=== PATIENT | female | born 1995 | race American Indian/Alaskan Native ===

== ENCOUNTER 2019-05-23 19:56 | Inpatient (IN) | payer MEDICAID, OTHER ==
[2019-05-23] MEDS ORDERED: LACTATED RINGERS 1,000 ML IV SCH (22:00)
[2019-05-23] MEDS ORDERED: REGLAN ONE (23:33)
[2019-05-23] MEDS ORDERED: BICITRA ONE (23:33)
[2019-05-23] MEDS ORDERED: PITOCin/NS 20 UNIT/1000ML DRIP 20,000 MILLIUNITS/1,000 ML BAG IV ONE (23:33)
[2019-05-23] MEDS ORDERED: PEPCID IV ONE (23:33)
[2019-05-23] MEDS ORDERED: DEXMEDETOMIDINE IV ONE (23:44)
--- NOTE | 2019-05-23 23:49 | Anesthesia Consultation ---
Anesthesia Consult and Med Hx Date of service: 05/23/19 - Airway Anesthetic Teeth Evaluation: Good ROM Head & Neck: Adequate Mental/Hyoid Distance: Adequate Mallampati Class: Class II Intubation Access Assessment: Good - Pulmonary Exam CTA: Yes - Cardiac Exam Cardiac Exam: RRR - Pre-Operative Health Status ASA Pre-Surgery Classification: ASA2, Emergency Proposed Anesthetic Plan: Spinal - Pulmonary Hx Asthma: No COPD: No Hx Pneumonia: No - Cardiovascular System Hx Hypertension: No - Central Nervous System Hx Seizures: No Hx Psychiatric Problems: No - Endocrine Hx Renal Disease: No Hx End Stage Renal Disease: No Hx Liver Disease: No Hx Hypothyroidism: No Hx Hyperthyroidism: No - Hematic Hx Anemia: No Hx Sickle Cell Disease: No - Other Systems Hx Alcohol Use: Yes
--- NOTE | 2019-05-23 23:49 | Anesthesia Day of Surgery ---
Anesthesia Day of Surgery - Day of Surgery Patient Examined: Yes Patient H&P Reviewed: Yes Patient is NPO: Yes
[2019-05-24] MEDS ORDERED: NARCAN 0.4 MG/1 ML IV PRN ×2 (00:15→02:04)
[2019-05-24] MEDS ORDERED: DILAUDID IV PRN ×2 (00:15)
[2019-05-24] MEDS ORDERED: PHENERGAN PO PRN (00:15)
[2019-05-24] MEDS ORDERED: ZOFRAN IV PRN (00:15)
[2019-05-24] MEDS ORDERED: PHENERGAN PR PRN (00:15)
[2019-05-24 00:45] LABS: Hematocrit 30.7 % (30.3-42.9); Hemoglobin 9.8 gm/dl (10.1-14.3); Mean Corpuscular Volume 71 fl (79-97); Red Blood Count 4.31 M/mm3 (3.65-5.03)
[2019-05-24 00:46] LABS: Mean Corpuscular HGB Conc 32 % (30-34); Platelet Count 221 K/mm3 (140-440); Red Cell Distribution Width 23.3 % (13.2-15.2)
[2019-05-24] MEDS ORDERED: SODIUM CHLORIDE FLUSH SYRINGE 10 ML IV PRN ×2 (01:00→03:00)
--- NOTE | 2019-05-24 01:14 | History and Physical Report ---
History of Present Illness Date of examination: 05/24/19 Date of admission: 05/24/19 01:00 Chief complaint: Labor History of present illness: Pt is a 23yo BF EDC 06/10/19; EGA 37 4/7 weeks presents to L&D complaining of RUC's q 3-4 mins which persisted despite IV hydration. She is currently Breech confirmed by u/s, and therefore will be delivered by C Section. She received care at [facility] since 11 weeks and course has been unremarkable. records are now available, but GBS was unknown. Past History Past Medical History: no pertinent history Past Surgical History: no surgical history Social history: no significant social history, single - Obstetrical History Expected Date of Delivery: 06/10/19 Actual Gestation: 37 Week(s) 5 Day(s) : 2 Medications and Allergies Allergies Allergy/AdvReac Type Severity Reaction Status Date / Time egg Allergy Intermediate Swelling Verified 01/11/15 17:26 Home Medications Medication Instructions Recorded Confirmed Last Taken Type Ondansetron [Zofran] 4 mg PO Q6HR PRN 01/11/15 05/24/19 Unknown History Active Meds: Active Medications Hydromorphone HCl (Dilaudid) 0.5 mg IV Q5M PRN PRN Reason: Breakthrough Pain Stop: 05/24/19 06:59 Hydromorphone HCl (Dilaudid) 0.5 mg IV Q4H PRN PRN Reason: breakthrough pain > 7/10 Lactated Ringer's (Lactated Ringers) 1,000 mls @ 150 mls/hr IV DIRECT TERESO Naloxone HCl (Narcan 0.4 Mg/1 Ml) 0.2 mg IV Q2MIN PRN PRN Reason: Res Rate </= 8 or 02 SAT < 92% Ondansetron HCl (Zofran) 4 mg IV Q8H PRN PRN Reason: Nausea And Vomiting Promethazine HCl (Phenergan) 25 mg PO Q6H PRN PRN Reason: Nausea And Vomiting Promethazine HCl (Phenergan) 25 mg AR Q6H PRN PRN Reason: Nausea And Vomiting Sodium Chloride (Sodium Chloride Flush Syringe 10 Ml) 10 ml IV PRN PRN PRN Reason: LINE FLUSH Review of Systems All systems: negative - Vital Signs Vital signs: Vital Signs Pulse BP 122 H 103/69 05/23/19 21:04 05/23/19 21:04 Temp Pulse Resp BP Pulse Ox 99.8 F H 113 H 20 114/77 05/23/19 21:05 05/23/19 22:53 05/23/19 21:05 05/23/19 22:53 - Physical Exam Breasts: Positive: deferred Cardiovascular: Regular rate Lungs: Positive: Clear to auscultation Abdomen: Positive: normal appearance Genitourinary (Female): Positive: normal external genitalia Uterus: Positive: enlarged Extremities: Positive: normal - Obstetrical FHR: category 1 Uterine Contraction Monitor Mode: External Results Result Diagrams: 05/24/19 14:53 Abnormal lab results 05/23/19 Range/Units 23:00 WBC 12.0 H (4.5-11.0) K/mm3 Hgb 9.8 L (10.1-14.3) gm/dl MCV 71 L (79-97) fl MCH 23 L (28-32) pg RDW 23.3 H (13.2-15.2) % All other labs normal. Ultrasound: report reviewed (Breech presentation) Assessment and Plan - Patient Problems (1) 37 weeks gestation of Onset Date: 05/24/19 Current Visit: Yes Status: Resolved Plan to address problem: A: IUP @ 37 4/7 weeks in labor Breech presentation P: Admit to L&D for C Section delivery (2) Breech presentation Onset Date: 05/24/19 Current Visit: Yes Status: Resolved Qualifiers: Fetus number: single or unspecified fetus Qualified Code(s): O32.1XX0 - Maternal care for breech presentation, not applicable or unspecified
[2019-05-24] MEDS ORDERED: ZOFRAN ONE (01:16)
[2019-05-24] MEDS ORDERED: DIPRIVAN 10 MG/ML IV ONE (01:31)
[2019-05-24] MEDS ORDERED: TORADOL ONE (01:33)
--- NOTE | 2019-05-24 01:56 | Operative Report ---
Operative Report Operative Report: Date of procedure: 05/24/2019 Pre-operative diagnosis: 1. Intrauterine at 30 4/7 weeks in labor 2 . Breech presentation Post-operative diagnosis: Same Procedure name(s): Primary low transverse section Surgeon: Pipo Candelaria MD Glass Pulverizer Equipment Operator: None Anesthesia: Spinal anesthesia by Van Zambrano CRNA EBL: 800 mL's Findings: A 3549 g male Apgars 8 at 1 minute 9 at 5 minutes. Charlie breech presentation. Normal uterus. Normal tubes and ovaries bilaterally. Procedure: After the patient was prepped and draped in usual sterile fashion, and after satisfactory level of epidural anesthesia was obtained, the skin knife was used to make a transverse skin incision. The incision was excised down to layer of the fascia, which was nicked in the midline and extended laterally using the Bovie cautery. The rectus muscles were dissected off the rectus fascia both superiorly and inferiorly. The rectus bellies in the midline, and the peritoneum was entered under direct visualization. The peritoneal incision was extended superiorly and inferiorly. A bladder flap was created and the bladder blade was then placed. The uterus was scored in a curvilinear linear fashion, entered in the midline revealing clear amniotic fluid. The 's Charlie breech was delivered onto the surgical field, the rest of the infant's body was delivered, cord was doubly clamped and cut and the was handed to the waiting respiratory team. Cord blood was then obtained. The placenta was manually removed from the uterus, and the uterus removed from its normal anatomical position. After gentle uterine lavage, the incision was inspected and found to be without extensions. It was then closed in 2 layers using 0 Vicryl suture in a running interlocking fashion, the second layer imbricating the first. After good hemostasis was achieved, copious amounts or irrigation was performed, and the gutters were suctioned free of blood and blood clots. The uterus was then returned to its normal anatomical position, and after excellent hemostasis assured, the peritoneum was re- approximated using 3-0 Vicryl suture in a running interlocking fashion, and then the rectus muscles were re-approximated using 3-0 Vicryl suture in a [id number] configuration. The fascia was then re-approximated using 0 Vicryl suture in running interlocking fashion. The subcutaneous layer was made hemostatic using Bovie cautery, and the skin edges re-approximated using 4-0 Vicryl suture in a sub-cuticular fashion. Patient tolerated the procedure well was transported to recovery in stable condition.
[2019-05-24] MEDS ORDERED: WATER FOR IRRIG STERILE IR ONE (01:58)
[2019-05-24] MEDS ORDERED: NACL 0.9% IR ONE (01:58)
[2019-05-24] MEDS ORDERED: TORADOL IV PRN (02:04)
[2019-05-24] MEDS ORDERED: MILK OF MAGNESIA PO PRN (02:04)
[2019-05-24] MEDS ORDERED: NORCO 5/325 PO PRN (02:04)
[2019-05-24] MEDS ORDERED: TYLENOL PO PRN (02:04)
[2019-05-24] MEDS ORDERED: LANSINOH TP PRN (02:04)
[2019-05-24] MEDS ORDERED: SENOKOT PO PRN (02:04)
[2019-05-24] MEDS ORDERED: TUCKS PAD TP PRN (02:04)
[2019-05-24] MEDS ORDERED: MYLICON PO PRN (02:04)
[2019-05-24] MEDS ORDERED: PITOCin/NS 20 UNIT/1000ML DRIP 20 UNITS/1,000 ML BAG IV SCH (03:00)
[2019-05-24] MEDS ORDERED: D5LR 1,000 ML IV SCH (03:00)
--- NOTE | 2019-05-24 09:21 | Ultrasound Report ---
ULTRASOUND OB LIMITED HISTORY: well being, evaluate position. FINDINGS: Transabdominal imaging was performed. A single intrauterine is identified in sunny ch presentation. heart rate measures 138 bpm. IMPRESSION: Breech presentation. Signer Name: Pipo Lopez Jr, MD Signed: 05/24/2019 9:17 AM Workstation Name: [id number]
[2019-05-24] MEDS: ANCEF/NS 1 GM/50 ML 1 GM/50 ML BAG IV SCH ×2 (10:10→18:03)
[2019-05-24] MEDS: FEOSOL PO SCH (10:11)
[2019-05-24] MEDS: IBUPROFEN PO PRN (10:11)
[2019-05-24] MEDS: PRENATAL VITAMIN PO SCH (10:12)
[2019-05-24 15:21] LABS: Hematocrit 26.9 % (30.3-42.9); Hemoglobin 8.4 gm/dl (10.1-14.3)
--- NOTE | 2019-05-24 17:52 | Post Anesthesia Evaluation ---
- Post Anesthesia Evaluation Patient Participated: Yes Airway Patent: Yes Stable Respiratory Function: Yes Nausea/Vomiting: No Temp > 96.8F: Yes Pain Manageable: Yes Adequeate Hydration: Yes Anesthesia Complications: No Block Receding Appropriately: Yes Patient on Ventilator: No
[2019-05-24] MEDS: PERCOCET 5/325 PO PRN (22:05)
[2019-05-25] MEDS ORDERED: M-M-R II VACCINE SUB-Q ONE (02:05)
[2019-05-25] MEDS: PERCOCET 5/325 PO PRN ×4 (03:36→23:57)
[2019-05-25] MEDS ORDERED: BOOSTRIX IM ONE (06:00)
--- NOTE | 2019-05-25 09:08 | Progress Note ---
Assessment and Plan - Patient Problems (1) 37 weeks gestation of Onset Date: 05/24/19 Current Visit: Yes Status: Resolved (2) Breech presentation Onset Date: 05/24/19 Current Visit: Yes Status: Resolved Qualifiers: Fetus number: single or unspecified fetus Qualified Code(s): O32.1XX0 - Ma ternal care for breech presentation, not applicable or unspecified (3) Status post Onset Date: 05/25/19 Current Visit: Yes Status: Resolved Plan to address problem: A: S/P C Section - POD #1 Doing well Asymptomatic anemia - stable P: Continue RPOC Anticipate discharge in 24-48hrs Subjective - Subjective Date of service: 05/25/19 Principal diagnosis: s/p C Section - POD #1 Interval history: Pt is feeling well without complaints. Bleeding improved. Patient reports: appetite normal, voiding normally, pain well controlled, flatus, ambulating normally, no dizzy ambulation, no nauseated [place]: doing well, bottle feeding Objective - Vital Signs Latest vital signs: Vital Signs Temp Pulse Resp BP BP Pulse Ox 05/25/19 03:36 20 05/25/19 00:55 97.3 F L 72 20 104/64 98 05/24/19 22:05 18 05/24/19 20:50 98.2 F 78 20 98/60 100 05/24/19 16:05 97.9 F 51 L 20 102/67 05/24/19 12:45 98.7 F 81 18 100/69 Intake and Output 05/24/19 05/25/19 05/25/19 22:59 06:59 14:59 Intake Total 360 600 Output Total 600 Balance -240 600 Intake: Oral 360 240 Intake, Free Water 360 Output: Urine 600 Void 600 Other: Total, Intake Amount 360 240 Total, Output Amount 600 # Voids Void 1 1 - Exam Breasts: Present: deferred Abdomen: Present: normal appearance, soft Uterus: Present: normal, firm, fundal height below umbilicus Extremities: Present: normal Incision: Present: normal, dry, intact, dressed - Labs Labs: Abnormal lab results 05/24/19 Range/Units 14:53 Hgb 8.4 L (10.1-14.3) gm/dl Hct 26.9 L (30.3-42.9) % Laboratory Tests 05/23/19 05/23/19 05/24/19 23:00 23:00 14:53 WBC 12.0 H RBC 4.31 Hgb 9.8 L 8.4 L Hct 30.7 26.9 L MCV 71 L MCH 23 L MCHC 32 RDW 23.3 H Plt Count 221 Blood Type A POSITIVE Antibody Screen Positive Prewarmed Antibody Srcn Negative Antibody Identification Anti-M
[2019-05-25] MEDS: FEOSOL PO SCH (10:44)
[2019-05-25] MEDS: PRENATAL VITAMIN PO SCH (10:45)
[2019-05-25] MEDS: IBUPROFEN PO PRN ×2 (10:45→17:27)
[2019-05-26] MEDS: PERCOCET 5/325 PO PRN (05:33)
--- NOTE | 2019-05-26 08:10 | Progress Note ---
Assessment and Plan - Patient Problems (1) 37 weeks gestation of Onset Date: 05/24/19 Current Visit: Yes Status: Resolved (2) Breech presentation Onset Date: 05/24/19 Current Visit: Yes Status: Resolved Qualifiers: Fetus number: single or unspecified fetus Qualified Code(s): O32.1XX0 - Ma ternal care for breech presentation, not applicable or unspecified (3) Status post Onset Date: 05/25/19 Current Visit: Yes Status: Resolved Plan to address problem: A: S/P C Section - POD #2 Doing well Asymptomatic anemia - stable P: May go home today Subjective - Subjective Date of service: 05/26/19 Principal diagnosis: s/p C Section - POD #2 Interval history: Pt is feeling well without complaints. She is tolerating a reg diet without nausea or vomiting, ambulating and voiding without difficulty. Patient reports: appetite normal, voiding normally, pain well controlled, flatus, ambulating normally, no dizzy ambulation, no nauseated [place]: doing well, bottle feeding Objective - Vital Signs Latest vital signs: Vital Signs Temp Pulse Resp BP BP Pulse Ox 05/26/19 05:33 18 05/25/19 23:59 97.5 F L 69 16 99/65 99 05/25/19 23:57 20 05/25/19 16:05 97.8 F 20 113/68 Intake and Output 05/25/19 05/26/19 05/26/19 22:59 06:59 14:59 Intake Total 480 480 Balance 480 480 Intake: Oral 480 Intake, Free Water 480 Other: Total, Intake Amount 120 # Voids Void 2 2 - Exam Abdomen: Present: normal appearance, soft Uterus: Present: normal, firm, fundal height below umbilicus Extremities: Present: normal Incision: Present: normal, dry, intact
--- NOTE | 2019-05-26 08:42 | Discharge Summary ---
Providers - Providers Date of Admission: 05/24/19 01:00 Date of discharge: 05/26/19 Attending physician: MICHAEL KESSLER Primary care physician: MICHAEL KESSLER Hospitalization Reason for admission: active labor, labor, IUP at term, other (Breech presentation) Delivery: Procedure: section, primary low transverse Episiotomy: none Laceration: none Incision: normal, dry, intact Other procedures: none complications: none Discharge diagnosis: IUP at term delivered [place] baby: male Hospital course: Pt is a 23yo BF EDC 06/10/19; EGA 37 4/7 weeks who presented to L&D complaining of RUC's q 3-4 mins which persisted despite IV hydration. She was Breech confirmed by u/s, and therefore delivered by an uncomplicated C Section. Postoperative course was unremarkable and by POD #2 she was tolerating a reg diet without nausea or vomiting, ambulating and voiding without difficulty. She was therefore discharged to home on POD #2 in stable condition. Condition at discharge: Good Disposition: DC-01 TO HOME OR SELFCARE - Discharge Diagnoses (1) 37 weeks gestation of Status: Resolved (2) Breech presentation Status: Resolved Qualifiers: Fetus number: single or unspecified fetus Qualified Code(s): O32.1XX0 - Maternal care for breech presentation, not applicable or unspecified (3) Status post Status: Resolved Plan - Discharge Medications Prescriptions: Ferrous Sulfate [Feosol 325 MG tab] 325 mg PO BID #60 tablet Ibuprofen [Motrin 800 MG tab] 800 mg PO Q6H PRN #30 tablet PRN Reason: Pain, Mild (1-3) oxyCODONE /ACETAMINOPHEN [Percocet 5/325 mg] 1 tab PO Q6H PRN #30 tablet PRN Reason: Pain, Moderate (4-6) Vit-Fe Fumar-FA [ Vitamin] 1 each PO QDAY #30 tablet - Provider Discharge Summary Activity: routine, no sex for 6 weeks, no heavy lifting 4 weeks, no strenuous exercise Diet: routine Instructions: routine Additional instructions: [] Smoking cessation referral if applicable(refer to patient education folder for contact #) [] Refer to [facility] Booklet Call your doctor immediately for: * Fever > 100.5 * Heavy vaginal bleeding ( >1 pad per hour) * Severe persistent headache * Shortness of breath * Reddened, hot, painful area to leg or breast * Drainage or odor from incision. * Keep incision clean and dry at all times and follow doctor's instructions regarding bathing/showering - Follow up plan Follow up: MICHAEL KESSLER MD [Primary Care Provider] - 14 Days MIKE WILLOUGHBY CNM [Advanced Practice Nurse] - 14 Days Forms: [facility] Discharge Summary, Discharge Signature Page
[2019-05-26] MEDS: PRENATAL VITAMIN PO SCH (10:23)
[2019-05-26] MEDS: IBUPROFEN PO PRN (10:23)
[2019-05-26] MEDS: FEOSOL PO SCH (10:23)
[2019-05-26 14:59] VITALS: BP 107/71
== END 2019-05-26 15:15 | disposition home or self-care (01) | DRG 766 ==
LOC: TRG 19:56 → APU 05-24 00:35 → TRG 05-24 00:59 → APU 05-24 01:00 → OB 05-24 03:16
PROVIDERS: ADMIT Obstetrics & Gynecology; ATTEND Obstetrics & Gynecology
PROC: 10D00Z1 Extraction of Products of Conception, Low, Open Approach (ICD-10-PCS; principal; 2019-05-24)
DX: O32.1XX0 Maternal care for breech presentation, not applicable or unspecified (principal); Z3A.37 37 weeks gestation of pregnancy; Z37.0 Single live birth; O90.81 Anemia of the puerperium; D64.9 Anemia, unspecified
CPT/HCPCS: 36415; 76815; 85014; 85018; 85027; 86850; 86870; 86900; 86901; G0378; J0690; J1170; J1885; J2405; J2590; J2704; J2765; J3490; J7120; J7121